=== PATIENT | female | born 1995 | race Caucasian/White ===

== ENCOUNTER 2022-08-25 06:50 | Inpatient (IN) | payer OTHER ==
[2022-08-25] MEDS ORDERED: Nalbuphine 10 MG/0.5 ML Syringe IVPUSH PRN (07:51)
[2022-08-25] MEDS ORDERED: Ondansetron 4 MG/2 ML SDV IVPUSH PRN (07:51)
[2022-08-25] MEDS ORDERED: Lidocaine 1% 50 ML MDV INJECT ONE (07:51)
[2022-08-25] MEDS ORDERED: Oxytocin/Lactated Ringers 10 UNIT/1,000 ML BAG IV SCH ×2 (08:00)
[2022-08-25] MEDS: Lactated Ringers 1,000 ML IV SCH ×3 (08:45→21:19)
[2022-08-25] MEDS ORDERED: Diphtheria,Pertussis(Acell),Tetanus Vaccine 0.5 ML Syringe IM ONE (10:00)
[2022-08-25] MEDS: Sodium Chloride 0.9% 10 ML Syringe FLUSH SCH (10:13)
[2022-08-25] MEDS: Calcium Carbonate 500 MG Tab.Chew PO PRN ×2 (15:36→19:26)
[2022-08-25] MEDS ORDERED: fentaNYL 100 MCG/2 ML SDV EPIDUR PRN (19:55)
[2022-08-25] MEDS ORDERED: ePHEDrine 50 MG/ML SDV IVPUSH PRN (19:55)
[2022-08-25] MEDS ORDERED: Bupivacaine/fentaNYL/NS 100 ML Bag EPIDUR PRN (19:55)
[2022-08-25] MEDS ORDERED: diphenhydrAMINE 50 MG/ML SDV IVPUSH PRN (19:55)
[2022-08-26] MEDS ORDERED: Ropivacaine 0.2% PF 2 MG/ML 20 ML SDV ONE
[2022-08-26] MEDS ORDERED: Witch Hazel Medicated Pads 40/Jar TOP PRN (03:00)
[2022-08-26] MEDS ORDERED: Benzocaine/Menthol 20%-0.5% Spray 78 GM Cannister TOP PRN (03:00)
[2022-08-26] MEDS: Ibuprofen 600 MG Tab PO PRN ×3 (03:30→16:51)
[2022-08-26] MEDS: Docusate Sodium 100 MG Cap PO PRN (07:45)
[2022-08-26] MEDS: Acetaminophen 325 MG Tab PO PRN ×2 (07:45→21:02)
[2022-08-26] MEDS: Sodium Chloride 0.9% 10 ML Syringe FLUSH SCH (22:10)
[2022-08-27] MEDS: Ibuprofen 600 MG Tab PO PRN ×2 (04:35→11:44)
[2022-08-27] MEDS: Docusate Sodium 100 MG Cap PO PRN (11:43)
== END 2022-08-27 14:25 | disposition home or self-care (01) | DRG 807 ==
LOC: JD.OBCHECK 06:50 → JD.OB 07:51 → OBSVTOIN 08-26 01:43 → JD.OB 08-26 01:44
PROVIDERS: ADMIT Obstetrics & Gynecology; ATTEND Obstetrics & Gynecology
PROC: 10E0XZZ Delivery of Products of Conception, External Approach (ICD-10-PCS; principal; 2022-08-26)
PROC: 0KQM0ZZ Repair Perineum Muscle, Open Approach (ICD-10-PCS; 2022-08-26)
PROC: 3E0R3BZ Introduction of Anesthetic Agent into Spinal Canal, Percutaneous Approach (ICD-10-PCS; 2022-08-26)
PROC: 00HU33Z Insertion of Infusion Device into Spinal Canal, Percutaneous Approach (ICD-10-PCS; 2022-08-26)
DX: O42.02 Full-term premature rupture of membranes, onset of labor within 24 hours of rupture (principal); O26.893 Other specified pregnancy related conditions, third trimester; O70.1 Second degree perineal laceration during delivery; Z3A.39 39 weeks gestation of pregnancy; Z37.0 Single live birth; Z67.11 Type A blood, Rh negative
CPT/HCPCS: 01967; 36415; 51701; 59025; 59409; 84112; 85025; 85027; 85461; 86592; 86762; 86850; 86870; 86900; 86901; A9270-GY; J2590; J2790; J2795; J3490; J7120

== ENCOUNTER 2023-10-18 04:02 | Inpatient (IN) | payer OTHER ==
[2023-10-18] MEDS ORDERED: Nalbuphine 10 MG/ML Syringe IVPUSH PRN (04:42)
[2023-10-18] MEDS ORDERED: Oxytocin/Lactated Ringers 30 UNIT/500 ML BAG IV SCH (04:45)
[2023-10-18 05:00] LABS: BASOPHILS PERCENT AUTO 0.5 % (0.0-1.0); EOSINOPHILS ABSOLUTE AUTO 0.1 K/mm3 (0.0-0.4); EOSINOPHILS PERCENT AUTO 1.2 % (0.0-6.0); HEMATOCRIT 35.8 % (37.0-47.0); HEMOGLOBIN 12.2 gm/dl (12.0-16.0); IMMATURE GRAN ABSOLUTE AUTO 0.01 K/mm3 (0.00-0.05); IMMATURE GRAN PERCENT AUTO 0.2 % (0.0-0.4); LYMPHOCYTES ABSOLUTE AUTO 1.9 K/mm3 (1.0-4.8); LYMPHOCYTES PERCENT AUTO 28.7 % (24.0-44.0); MEAN CORPUSCULAR HEMOGLOBIN 31.4 pg (28.0-32.0); MEAN CORPUSCULAR HGB CONC 34.1 g/dl (32.0-36.0); MEAN CORPUSCULAR VOLUME 92.3 fl (83.0-99.0); MEAN PLATELET VOLUME 9.9 fl (9.4-12.3); MONOCYTES ABSOLUTE AUTO 0.6 K/mm3 (0.0-0.8); MONOCYTES PERCENT AUTO 9.8 % (0.0-8.0); NEUTROPHILS ABSOLUTE AUTO 3.9 K/mm3 (1.8-7.7); NEUTROPHILS PERCENT AUTO 59.6 % (41.0-71.0); PLATELET COUNT,PLT 192 K/mm3 (150-400); RED BLOOD CELL COUNT 3.88 M/mm3 (4.10-5.30); WHITE BLOOD CELL COUNT,WBC 6.54 K/mm3 (3.9-11.3)
[2023-10-18] MEDS: Ondansetron 4 MG/2 ML SDV IVPUSH PRN (06:21)
[2023-10-18] MEDS: Lactated Ringers 1,000 ML IV SCH (06:43)
[2023-10-18] MEDS: Oxytocin/Lactated Ringers 30 UNIT/500 ML BAG IV SCH (07:03)
[2023-10-18] MEDS: Lidocaine 1% 50 ML MDV INJECT PRN (07:21)
[2023-10-18] MEDS ORDERED: Docusate Sodium 100 MG Cap PO PRN (07:31)
[2023-10-18] MEDS: Ibuprofen 600 MG Tab PO SCH (07:55)
[2023-10-18] MEDS: Witch Hazel Medicated Pads 40/Jar TOP PRN (08:37)
[2023-10-18] MEDS: Benzocaine/Menthol 20%-0.5% Spray 78 GM Cannister TOP PRN (08:37)
[2023-10-18] MEDS: Acetaminophen 325 MG Tab PO PRN (17:27)
== END 2023-10-19 11:30 | disposition home or self-care (01) | DRG 807 ==
LOC: JD.OBCHECK 04:02 → JD.OB 04:04 → JD.OBCHECK 04:42 → JD.OB 04:43 → OBSVTOIN 06:54 → JD.OB 06:55
PROVIDERS: ADMIT Obstetrics & Gynecology; ATTEND Obstetrics & Gynecology
PROC: 10E0XZZ Delivery of Products of Conception, External Approach (ICD-10-PCS; principal; 2023-10-18)
PROC: 3E0334Z Introduction of Serum, Toxoid and Vaccine into Peripheral Vein, Percutaneous Approach (ICD-10-PCS; 2023-10-18)
PROC: 0KQM0ZZ Repair Perineum Muscle, Open Approach (ICD-10-PCS; 2023-10-18)
DX: O42.02 Full-term premature rupture of membranes, onset of labor within 24 hours of rupture (principal); Z37.0 Single live birth; O24.420 Gestational diabetes mellitus in childbirth, diet controlled; O48.0 Post-term pregnancy; O26.893 Other specified pregnancy related conditions, third trimester; Z67.11 Type A blood, Rh negative; O70.1 Second degree perineal laceration during delivery; Z3A.40 40 weeks gestation of pregnancy
CPT/HCPCS: 36415; 59025; 59409; 82947; 85025; 85461; 86592; 86850; 86870; 86900; 86901; A9270-GY; J2001; J2405; J2790; J7120; J7999